=== PATIENT | female | born 1995 | race Caucasian/White ===

== ENCOUNTER → 2016-11-04 | Outpatient (CLI) | payer OTHER ==
[2016-11-04 17:29] LABS: BASO % 0.4 % (0.0-1.0); EOS # 0.1 K/mm3 (0.0-0.50); LARGE UNSTAINED CELL # 0.1 K/mm3 (0.0-0.4); LARGE UNSTAINED CELL % 1.9 % (0.0-4.0); LYMPH # 2.8 K/mm3 (1.5-6.5); LYMPH % 39.6 % (24.0-44.0); MEAN CORPUSCULAR HEMOGLOBIN 28.7 pg (27.0-33.0); MEAN CORPUSCULAR HGB CONC 32.6 g/dl (32.0-36.5); MEAN CORPUSCULAR VOLUME 87.9 fl (80.0-96.0); MONO # 0.5 K/mm3 (0.0-0.8); MONO % 7.5 % (0.0-5.0); NEUTROPHILS # 3.4 K/mm3 (1.8-7.7); NEUTROPHILS % 48.6 % (36.0-66.0); PLATELET COUNT, AUTOMATED 284 k/mm3 (150-450); RED CELL DISTRIBUTION WIDTH 12.6 % (11.5-14.5); WHITE BLOOD COUNT 7.1 K/mm3 (4.0-10.0)
[2016-11-04 18:24] LABS: ALBUMIN 3.8 GM/DL (3.2-5.2); ALBUMIN/GLOBULIN RATIO 1.15 (1.00-1.93); ALKALINE PHOSPHATASE 59 U/L (45-117); ALT/SGPT 27 U/L (12-78); ANION GAP 8 MEQ/L (8-16); AST/SGOT 20 U/L (15-37); BILIRUBIN,TOTAL 0.2 MG/DL (0.2-1.0); BLOOD UREA NITROGEN 14 MG/DL (7-18); CARBON DIOXIDE LEVEL 26 MEQ/L (21-32); CHLORIDE LEVEL 107 MEQ/L (98-107); GLOMERULAR FILTRATION RATE > 60.0 (>60); GLUCOSE, FASTING 82 MG/DL (70-105); POTASSIUM SERUM 4.2 MEQ/L (3.5-5.1); SODIUM LEVEL 141 MEQ/L (136-145); TOTAL PROTEIN 7.1 GM/DL (6.4-8.2)
[2016-11-04 18:35] LABS: ERYTHROCYTE SEDIMENTATION RATE 16 mm/hr (0-20)
== END ==
LOC: M WUC 15:32
PROVIDERS: ATTEND Psychiatry & Neurology Neurology
DX: R51 Headache (principal)

== ENCOUNTER → 2016-12-12 | Outpatient (REF) | payer OTHER | LOC: M LAB REF 09:25 | PROVIDERS: ATTEND Physician Assistant | DX: J01.10 Acute frontal sinusitis, unspecified (principal) ==

== ENCOUNTER → 2017-01-10 | Outpatient (REF) | payer BC | LOC: M SFHCWAGY 08:42 | PROVIDERS: ATTEND Nurse Practitioner Women's Health | DX: Z11.4 Encounter for screening for human immunodeficiency virus [HIV] (principal) | CPT/HCPCS: 36415; 87491; 87591; 87899; G0123 ==

== ENCOUNTER → 2017-02-14 | Outpatient (REF) | payer BC ==
[2017-02-25 00:07] LABS: VANILLYLMANDELIC ACID,URINE 3.4 mg/L (Undefined); VANILLYLMANDELIC ACID,URINE 24 3.4 mg/24 hr (0.0-7.5)
== END ==
LOC: M SFHCPLAZ 09:20
PROVIDERS: ATTEND Nurse Practitioner Adult Health
DX: R03.0 Elevated blood-pressure reading, without diagnosis of hypertension (principal)

== ENCOUNTER → 2017-02-28 | Outpatient (CLI) | payer BC ==
--- NOTE | 2017-03-01 04:26 | REP ---
Clinical: Hypertension. Technique: Green scale evaluation of the kidneys using curved array transducer. Findings: The kidneys are essentially normal in contour size and echogenicity and reniform shape without hydronephrosis, nephrolithiasis, cystic or renal mass lesion. Right kidney measures 10.3 x 5.4 x 6.2 cm . Left kidney measures 12.2 x 7.1 x 6.0 cm . Bladder is incompletely distended and grossly normal by current evaluation. Impression: Normal renal ultrasound. Signed by David Atkinson MD 03/01/2017 04:17 A
== END ==
LOC: M RAD 12:55
PROVIDERS: ATTEND Nurse Practitioner Adult Health
DX: R03.0 Elevated blood-pressure reading, without diagnosis of hypertension (principal)

== ENCOUNTER → 2017-07-28 | Outpatient (REF) | payer BC | LOC: M LAB REF 08:58 | DX: J02.9 Acute pharyngitis, unspecified (principal) | CPT/HCPCS: 87081 ==

== ENCOUNTER → 2017-08-16 | Outpatient (CLI) | payer BC | LOC: M RAD 08:44 | DX: J32.0 Chronic maxillary sinusitis (principal) | CPT/HCPCS: 70486 ==

== ENCOUNTER → 2017-11-24 | Outpatient (CLI) | payer OTHER | LOC: M WUC 15:51 | DX: M54.42 Lumbago with sciatica, left side (principal) ==

== ENCOUNTER → 2018-01-27 | Outpatient (CLI) | payer OTHER ==
[2018-01-27 12:25] LABS: HEMATOCRIT 39.5 % (36.0-47.0); HEMOGLOBIN 13.4 g/dl (12.0-15.5); MEAN CORPUSCULAR HEMOGLOBIN 29.9 pg (27.0-33.0); MEAN CORPUSCULAR HGB CONC 33.9 g/dl (32.0-36.5); MEAN CORPUSCULAR VOLUME 88.2 fl (80.0-96.0); PLATELET COUNT, AUTOMATED 279 10^3/uL (150-450); RED BLOOD COUNT 4.48 10^6/uL (4.00-5.40); RED CELL DISTRIBUTION WIDTH 12.8 % (11.5-14.5); WHITE BLOOD COUNT 7.8 10^3/uL (4.0-10.0)
[2018-01-27 13:11] LABS: ALBUMIN 3.7 GM/DL (3.2-5.2); ALBUMIN/GLOBULIN RATIO 1.06 (1.00-1.93); ALKALINE PHOSPHATASE 76 U/L (45-117); ALT/SGPT 33 U/L (12-78); ANION GAP 8 MEQ/L (8-16); AST/SGOT 20 U/L (7-37); BILIRUBIN,TOTAL 0.3 MG/DL (0.2-1.0); BLOOD UREA NITROGEN 10 MG/DL (7-18); CALCIUM LEVEL 8.8 MG/DL (8.5-10.1); CARBON DIOXIDE LEVEL 27 MEQ/L (21-32); CHLORIDE LEVEL 106 MEQ/L (98-107); CHOLESTEROL LEVEL 184 MG/DL (<200); CHOLESTEROL RISK RATIO 4.088 (<5); CREATININE FOR GFR 0.81 MG/DL (0.55-1.30); GLOMERULAR FILTRATION RATE > 60.0 (>60); GLUCOSE, FASTING 92 MG/DL (70-100); HDL CHOLESTEROL 45 MG/DL (>40); LDL CHOLESTEROL 106.8 MG/DL (<100); NON-HDL-C 139 MG/DL; POTASSIUM SERUM 4.6 MEQ/L (3.5-5.1); SODIUM LEVEL 141 MEQ/L (136-145); TOTAL PROTEIN 7.2 GM/DL (6.4-8.2); TRIGLYCERIDES LEVEL 161 MG/DL (<150)
== END ==
LOC: M WUC 08:50
DX: Z00.00 Encounter for general adult medical examination without abnormal findings (principal)
CPT/HCPCS: 84443

== ENCOUNTER → 2018-02-17 | Outpatient (REF) | payer OTHER ==
[2018-02-17 15:56] LABS: CHLAMYDIA DNA AMPLIFICATION NEGATIVE (NEGATIVE); GC DNA AMPLIFICATION NEGATIVE (NEGATIVE)
== END ==
LOC: M SFHCWAGY 09:03
DX: Z12.4 Encounter for screening for malignant neoplasm of cervix (principal)

== ENCOUNTER → 2018-10-11 | Outpatient (CLI) | payer OTHER ==
--- NOTE | 2018-10-13 12:17 | REP ---
MRA BRAIN WITHOUT CONTRAST: HISTORY: Aneurysm. COMPARISON: 01/03/2017. 3D [id number] MR angiography was performed at the level of the [place]. A small aneurysm is present arising from the cavernous left internal carotid artery. The aneurysm measures 1 mm in size. The aneurysm projects anterior and medial from the cavernous left internal carotid artery. There is no other aneurysm or arteriovenous malformation. There are no atherosclerotic lesions. Major intracranial vessels are patent. The vertebral arteries are equal in size. 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 Electronically Signed by Miguel A Smith MD 10/13/2018 12:26 P
== END ==
LOC: M RAD 17:07
PROVIDERS: ATTEND Nurse Practitioner Adult Health
DX: I67.1 Cerebral aneurysm, nonruptured (principal)

== ENCOUNTER → 2019-01-21 | Outpatient (CLI) | payer OTHER ==
[2019-01-21 18:31] LABS: HEMOGLOBIN A1c 5.5 %
[2019-01-21 18:32] LABS: ALBUMIN 3.7 GM/DL (3.2-5.2); ALT/SGPT 34 U/L (12-78); BILIRUBIN,TOTAL 0.3 MG/DL (0.2-1.0); BLOOD UREA NITROGEN 11 MG/DL (7-18); CALCIUM LEVEL 8.7 MG/DL (8.5-10.1); CARBON DIOXIDE LEVEL 27 MEQ/L (21-32); CHLORIDE LEVEL 108 MEQ/L (98-107); CHOLESTEROL LEVEL 169 MG/DL (<200); CHOLESTEROL RISK RATIO 3.595 (<5); CREATININE FOR GFR 0.79 MG/DL (0.55-1.30); FREE T4 1.06 NG/DL (0.76-1.46); GLOMERULAR FILTRATION RATE > 60.0 (>60); GLUCOSE, FASTING 85 MG/DL (70-100); HDL CHOLESTEROL 47 MG/DL (>40); LDL CHOLESTEROL 95 MG/DL (<100); NON-HDL-C 122 MG/DL; POTASSIUM SERUM 4.4 MEQ/L (3.5-5.1); SODIUM LEVEL 141 MEQ/L (136-145); TRIGLYCERIDES LEVEL 137 MG/DL (<150)
[2019-01-21 18:39] LABS: BASO % 0.6 % (0.0-1.0); EOS # 0.2 10^3/uL (0.0-0.50); EOS % 2.6 % (0.0-3.0); HEMATOCRIT 41.1 % (36.0-47.0); HEMOGLOBIN 13.3 g/dl (12.0-15.5); LYMPH # 2.7 10^3/uL (1.5-6.5); LYMPH % 39.2 % (24.0-44.0); MEAN CORPUSCULAR HEMOGLOBIN 29.6 pg (27.0-33.0); MEAN CORPUSCULAR HGB CONC 32.4 g/dl (32.0-36.5); MEAN CORPUSCULAR VOLUME 91.5 fl (80.0-96.0); MONO # 0.5 10^3/uL (0.0-0.8); MONO % 7.3 % (0.0-5.0); NEUTROPHILS # 3.4 10^3/uL (1.8-7.7); NEUTROPHILS % 50.2 % (36.0-66.0); PLATELET COUNT, AUTOMATED 271 10^3/uL (150-450); RED BLOOD COUNT 4.49 10^6/uL (4.00-5.40); WHITE BLOOD COUNT 6.8 10^3/uL (4.0-10.0)
== END ==
LOC: M WUC 08:36
PROVIDERS: ATTEND Physician Assistant
DX: I10 Essential (primary) hypertension (principal); Z68.39 Body mass index [BMI] 39.0-39.9, adult

== ENCOUNTER → 2019-03-12 | Outpatient (REF) | payer OTHER ==
[2019-03-12 13:36] LABS: CHLAMYDIA DNA AMPLIFICATION NEGATIVE (NEGATIVE); GC DNA AMPLIFICATION NEGATIVE (NEGATIVE)
== END ==
LOC: M SFHCWAGY 11:33
PROVIDERS: ATTEND Nurse Practitioner Women's Health
DX: Z11.3 Encounter for screening for infections with a predominantly sexual mode of transmission (principal)

== ENCOUNTER → 2019-07-24 | Outpatient (CLI) | payer OTHER ==
[2019-07-24 13:39] LABS: ALBUMIN 3.8 GM/DL (3.2-5.2); ALT/SGPT 23 U/L (12-78); BILIRUBIN,TOTAL 0.5 MG/DL (0.2-1.0); BLOOD UREA NITROGEN 10 MG/DL (7-18); CALCIUM LEVEL 9.2 MG/DL (8.5-10.1); CARBON DIOXIDE LEVEL 26 MEQ/L (21-32); CHLORIDE LEVEL 105 MEQ/L (98-107); CREATININE FOR GFR 0.81 MG/DL (0.55-1.30); FREE T4 0.97 NG/DL (0.76-1.46); GLOMERULAR FILTRATION RATE > 60.0 (>60); GLUCOSE, FASTING 84 MG/DL (70-100); POTASSIUM SERUM 4.7 MEQ/L (3.5-5.1); SODIUM LEVEL 139 MEQ/L (136-145); THYROID STIMULATING HORMONE 0.677 uIU/ML (0.358-3.740); TOTAL PROTEIN 7.2 GM/DL (6.4-8.2)
== END ==
LOC: M WUC 09:34
PROVIDERS: ATTEND Family Medicine
DX: I10 Essential (primary) hypertension (principal); E66.9 Obesity, unspecified

== ENCOUNTER → 2019-09-27 | Outpatient (CLI) | payer OTHER ==
--- NOTE | 2019-09-27 10:07 | REP ---
Hepatobiliary scan and gallbladder ejection fraction: History: Right upper quadrant pain Technique: 6.6 mCi of technetium-99m mebrofenin was injected and sequential anterior images are acquired. 65 minutes after the mebrofenin injection, the patient consumed 8 ounces Ensure and an additional 60 minutes of imaging was acquired. Regions of interest are plotted around the gallbladder. Findings: The initial hepatocellular parenchymal uptake phase is normal and homogeneous. Intra- and extra-hepatic bile ducts are labeled by the 10 -minute image. The gallbladder is first labeled on the 20 -minute image. There is normal washout from the liver parenchyma into the gallbladder and small intestine on subsequent images. The gallbladder ejection fraction is 93 %. Values greater than 35 % are considered normal with this technique. Impression: Normal hepatobiliary scan and normal gallbladder ejection fraction. Electronically Signed by Da Magallon MD 09/27/2019 10:00 A
== END ==
LOC: M RAD 07:33
PROVIDERS: ATTEND Family Medicine
DX: R10.11 Right upper quadrant pain (principal)
CPT/HCPCS: 78227; A9537; J2805

== ENCOUNTER → 2019-12-05 | Outpatient (CLI) | payer OTHER ==
[2019-12-05 15:09] LABS: ALBUMIN 3.6 GM/DL (3.2-5.2); ALT/SGPT 30 U/L (12-78); BILIRUBIN,DIRECT < 0.1 MG/DL (0.0-0.2); BILIRUBIN,TOTAL 0.3 MG/DL (0.2-1.0); TOTAL PROTEIN 7.2 GM/DL (6.4-8.2)
[2019-12-06 07:13] LABS: H PYLORI QUALITATIVE IgG NEGATIVE (NEGATIVE)
[2019-12-07 08:06] LABS: IGASUB2 53.2 mg/dL (73.2-301.2); IGASUB3 13.2 mg/dL (13.4-97.9); IgA SERUM (part of Subclasses) 72 mg/dL (87-352); TISSUE TRANSGLUTAMINASE IgA <2 U/mL (0-3)
== END ==
LOC: M WUC 12:38
PROVIDERS: ATTEND Internal Medicine Gastroenterology
DX: R10.11 Right upper quadrant pain (principal)

== ENCOUNTER → 2019-12-18 | Outpatient (CLI) | payer OTHER ==
--- NOTE | 2019-12-19 04:31 | REP ---
Clinical: Right upper quadrant pain. Comparison: 09/10/2019. Technique: Real time lackey scale and color evaluation using curved array transducer. Findings: Liver and pancreas are normal in contour, size, echogenicity without focal hepatic or pancreatic lesions identified. Gallbladder demonstrates 13 mm gallstone with mild wall thickening to 5 mm. No pericholecystic fluid or biliary ductal dilatation is appreciated. Common bile duct measures 3 mm diameter. The right kidney is normal in reniform shape without hydronephrosis and measures 9.8 x 6.1 x 5.4 cm. Visualized abdominal aorta appears normal. No ascites in the visualized right upper quadrant. Impression: Cholelithiasis. No definite sonographic evidence for acute cholecystitis.
== END ==
LOC: M PLAIMG 08:19
PROVIDERS: ATTEND Internal Medicine Gastroenterology
DX: K80.20 Calculus of gallbladder without cholecystitis without obstruction (principal); R10.11 Right upper quadrant pain

== ENCOUNTER → 2020-01-21 | Outpatient (CLI) | payer OTHER ==
[~2020-01-21] MED LIST: CETI-36 PO; HYDR-3715 PO; JOLETAB PO; LABE10TAB PO
== END ==
LOC: M LABSMTC 11:46
PROVIDERS: ATTEND Anesthesiology
DX: Z03.818 Encounter for observation for suspected exposure to other biological agents ruled out (principal); Z11.59 Encounter for screening for other viral diseases
CPT/HCPCS: C9803; U0003

== ENCOUNTER 2020-01-24 06:57 | Day surgery (SDC) | payer OTHER ==
[~2020-01-24] VITALS: Ht 162.6 cm; Wt 97.5 kg
[~2020-01-24 06:57] MED LIST changes: -HYDR-3715 PO
[2020-01-24] MEDS ORDERED: LR 1,000 ML IV ONE (07:00)
[2020-01-24] MEDS ORDERED: BUPIVACAINE HCL 0.25% 30ML VIAL As Ordered ONE (08:04)
[2020-01-24] MEDS ORDERED: SUGAMMADEX SODIUM 500 MG/5 ML VIAL (BRIDION) As Ordered ONE (08:33)
[2020-01-24] MEDS ORDERED: propofoL 200 MG/20 ML VIAL As Ordered ONE (08:33)
[2020-01-24] MEDS ORDERED: METOCLOPRAMIDE INJ 10MG/2ML VIAL (J2765 PER 1) As Ordered ONE (08:33)
[2020-01-24] MEDS ORDERED: ONDANSETRON 4MG/2ML VIAL As Ordered ONE (08:33)
[2020-01-24] MEDS ORDERED: dexameTHASONE 4 MG/ML 1ML VIAL (J1100 PER 1MG) As Ordered ONE (08:33)
[2020-01-24] MEDS ORDERED: LIDOCAINE 2% 100MG/5ML SDV (FOR ANES.) As Ordered ONE (08:33)
[2020-01-24] MEDS ORDERED: KETOROLAC 60MG 2ML VIAL As Ordered ONE (08:33)
[2020-01-24] MEDS ORDERED: ROCURONIUM BROMIDE 50 MG/5 ML VIAL As Ordered ONE (08:33)
[2020-01-24] MEDS ORDERED: MIDAZOLAM INJ 2MG/2ML VIAL (J2250 PER 1MG) As Ordered ONE (08:33)
[2020-01-24] MEDS ORDERED: fentaNYL 250 MCG/5 ML INJECTION (J3010) As Ordered ONE (08:33)
[2020-01-24] MEDS ORDERED: ACETAMINOPHEN 1000MG 100ML IV BTL (OFIRMEV) (J0131 PER 10MG) As Ordered ONE (08:52)
[2020-01-24] MEDS ORDERED: fentaNYL 100 MCG/2 ML INJECTION (J3010) IV PRN (10:30)
[2020-01-24] MEDS ORDERED: ONDANSETRON 4MG/2ML VIAL IV PRN (10:30)
[2020-01-24] MEDS ORDERED: oxyCODONE 5MG TAB PO PRN (10:30)
[2020-01-24] MEDS ORDERED: LR 1,000 ML IV SCH (10:30)
[2020-01-24] MEDS ORDERED: HYDROMORPHONE HCL 0.5 MG/ 0.5 ML SYRINGE (J1170 PER 1) IV PRN (10:30)
[2020-01-24] MEDS ORDERED: NORCO, ANEXSIA 5/325MG TABLET (HYDROcodone/ACETAMINOPHEN) PO PRN (10:45)
[2020-01-24] MEDS ORDERED: IBUPROFEN 600MG TAB PO PRN (10:45)
[2020-01-24] MEDS ORDERED: ACETAMINOPHEN TAB 650MG DOSE (2X325MG) PO PRN (10:45)
[2020-01-24] MEDS ORDERED: HYDR-3715 PO (10:55)
[2020-01-24 12:25] VITALS: BP 136/79
--- NOTE | 2020-01-29 14:30 | RO ---
DATE OF PROCEDURE: 01/24/2020 PREOPERATIVE DIAGNOSIS: Symptomatic cholelithiasis. POSTOPERATIVE DIAGNOSIS: Symptomatic cholelithiasis. PROCEDURE PERFORMED: Robotic-assisted laparoscopic cholecystectomy. SURGEON: Dr. Jordy Campos LANDSCAPE MANAGER: ANESTHESIA: General. INDICATIONS FOR PROCEDURE: The patient is a 24-year-old woman who has had a history of episodic upper abdominal pains. She was found to have cholelithiasis and is now for a laparoscopic cholecystectomy. OPERATIVE PROCEDURE: The patient was brought to the operating room and placed on the table in a supine position. She was placed under general endotracheal anesthesia. The patient's abdomen was prepped and draped in a sterile fashion. 0.25% Marcaine was infiltrated at each of the trocar sites as needed. Initial incision was in the left upper quadrant. A Veress needle was inserted and after a positive hanging drop test the abdomen was inflated with carbon dioxide gas. An 8 mm robotic port was then placed over a 5 mm scope and advanced through the abdominal wall without difficulty. The laparoscope was inserted and initial examination showed no adhesions. The liver appeared normal. Visualized portions of the stomach and small and large bowel appeared normal. The tip of the fundus of the gallbladder was seen and did not appear acutely inflamed. Three additional 8 mm ports were then placed at the supraumbilical site and with two in the right lower quadrant. The surgical table was then tilted to a 10 degrees head-up position and rolled 5 degrees to the left. The da [employer] Xi surgical robot patient cart was brought into position and the camera arm was docked to the port at the supraumbilical site. The camera was inserted and targeting took place on the gallbladder. The additional robotic arms were then docked as well. A hook cautery was placed in the left upper quadrant and a Force bipolar and grasping retractor were placed in the right lower quadrant trocar sites. I then moved to the control console to proceed with the operation. The gallbladder was found to have some adhesions of the omentum beginning at the fundus and trailing along the free edge and these were divided with the cautery. Dissection was then begun at the gallbladder neck. The cystic duct and cholecystic artery were both clearly identified and dissected free. Both structures were then doubly clipped with Hem-o-miky clips and divided. Dissection of the gallbladder from the gallbladder bed was then begun. A second cholecystic artery was identified in the bed of the gallbladder and this was also clipped and divided. The dissection of the gallbladder continued until the gallbladder was completely freed. The gallbladder was not perforated in the course of dissection. The instruments were then rearranged and the supraumbilical site was used for passage of a specimen retrieval pouch. The gallbladder was inserted. Final inspection of the gallbladder bed showed no evidence of bleeding or bile leak. The robotic instruments were all removed. I returned to the operating table. The abdomen was deflated and the robotic ports were removed. Removal of gallbladder at the supraumbilical site necessitated extending the fascial incision slightly. There was one stone approximately 1.5 cm in diameter palpable within the gallbladder. The fascia was closed with interrupted simple sutures of #2-0 Vicryl. The skin incisions were all closed with buried #4-0 Vicryl and Steri-Strips. The patient tolerated the procedure well without apparent complication. She was awakened in the operating room, extubated and moved to the recovery room in stable condition.
== END 2020-01-24 12:50 | disposition home or self-care (01) ==
LOC: M SDC 06:57
PROVIDERS: ATTEND Surgery
DX: K80.20 Calculus of gallbladder without cholecystitis without obstruction (principal); I10 Essential (primary) hypertension; Z79.899 Other long term (current) drug therapy
CPT/HCPCS: 47562; 81025; 88304; J0131; J1100; J1885; J2250; J2405; J2765; J3010

== ENCOUNTER → 2020-03-13 | Outpatient (REF) | payer OTHER ==
[~2020-03-13] MED LIST changes: +HYDR-3715 PO
== END ==
LOC: M SFHCWAGY 12:26
PROVIDERS: ATTEND Nurse Practitioner Women's Health
DX: Z12.4 Encounter for screening for malignant neoplasm of cervix (principal)

== ENCOUNTER → 2020-08-09 | Outpatient (CLI) | payer OTHER ==
[~2020-08-09] MED LIST changes: +LABE100T4 PO; -LABE10TAB PO
[2020-08-09 11:12] LABS: BASO % 0.6 % (0.0-1.0); EOS # 0.1 10^3/uL (0.0-0.5); EOS % 1.7 % (0.0-3.0); HEMOGLOBIN 13.2 g/dl (12.0-15.5); LYMPH # 2.4 10^3/uL (1.5-5.0); LYMPH % 38.4 % (24.0-44.0); MEAN CORPUSCULAR HEMOGLOBIN 28.9 pg (27.0-33.0); MEAN CORPUSCULAR HGB CONC 32.2 g/dl (32.0-36.5); MEAN CORPUSCULAR VOLUME 89.9 fl (80.0-96.0); MONO # 0.5 10^3/uL (0.0-0.8); NEUTROPHILS # 3.3 10^3/uL (1.5-8.5); NEUTROPHILS % 51.1 % (36.0-66.0); PLATELET COUNT, AUTOMATED 274 10^3/uL (150-450); RED BLOOD COUNT 4.56 10^6/uL (4.00-5.40); WHITE BLOOD COUNT 6.4 10^3/uL (4.0-10.0)
[2020-08-09 11:53] LABS: ALBUMIN 4.2 GM/DL (3.2-5.2); ALT/SGPT 35 U/L (12-78); BILIRUBIN,TOTAL 0.3 MG/DL (0.2-1.0); BLOOD UREA NITROGEN 12 MG/DL (7-18); CALCIUM LEVEL 8.8 MG/DL (8.5-10.1); CARBON DIOXIDE LEVEL 25 MEQ/L (21-32); CHLORIDE LEVEL 107 MEQ/L (98-107); CREATININE FOR GFR 0.87 MG/DL (0.55-1.30); FERRITIN 43 NG/ML (8-252); FREE T4 0.99 NG/DL (0.76-1.46); GLOMERULAR FILTRATION RATE > 60.0 (>60); GLUCOSE, FASTING 91 MG/DL (70-100); IRON (FE) 115 UG/DL (50-170); PERCENT SATURATION 25.8 % (13.2-45.0); POTASSIUM SERUM 4.5 MEQ/L (3.5-5.1); SODIUM LEVEL 138 MEQ/L (136-145); TOTAL IRON BINDING CAPACITY 446 UG/DL (250-450); TOTAL PROTEIN 7.5 GM/DL (6.4-8.2)
[2020-08-11 13:23] LABS: TOTAL 25(OH) VITAMIN D 44.8 NG/ML (30.0-100.0)
[2020-08-11 13:24] LABS: VITAMIN B12 LEVEL 341 PG/ML
[2020-08-11 13:25] LABS: FOLATE > 24.0 NG/ML
== END ==
LOC: M LAB 10:44
PROVIDERS: ATTEND Physician Assistant
DX: D50.9 Iron deficiency anemia, unspecified (principal)

== ENCOUNTER → 2021-03-19 | Outpatient (CLI) | payer OTHER ==
--- NOTE | 2021-03-19 16:24 | REP ---
INDICATION: Palpable right breast mass at 9 o'clock COMPARISON: None TECHNIQUE: Real-time sonographic evaluation right breast at the 9 o'clock position over a palpable abnormality FINDINGS: There are no cystic or solid masses. IMPRESSION: ACR category 2 benign right breast ultrasound as described above. <Electronically signed by Davion Rowan > 03/19/21 [id number]
== END ==
LOC: M WHC 14:42
PROVIDERS: ATTEND Nurse Practitioner Women's Health
DX: N63.10 Unspecified lump in the right breast, unspecified quadrant (principal)

== ENCOUNTER → 2021-06-21 | Outpatient (CLI) | payer OTHER ==
[2021-06-21 09:53] LABS: BASO % 0.7 % (0.0-1.0); EOS # 0.1 10^3/uL (0.0-0.5); EOS % 1.6 % (0.0-3.0); HEMATOCRIT 39.3 % (36.0-47.0); HEMOGLOBIN 12.4 g/dl (12.0-15.5); LYMPH # 2.2 10^3/uL (1.5-5.0); LYMPH % 36.3 % (24.0-44.0); MEAN CORPUSCULAR HGB CONC 31.6 g/dl (32.0-36.5); MEAN CORPUSCULAR VOLUME 85.6 fl (80.0-96.0); MONO # 0.4 10^3/uL (0.0-0.8); MONO % 7.2 % (2.0-8.0); NEUTROPHILS # 3.3 10^3/uL (1.5-8.5); NEUTROPHILS % 53.7 % (36.0-66.0); PLATELET COUNT, AUTOMATED 297 10^3/uL (150-450); RED BLOOD COUNT 4.59 10^6/uL (4.00-5.40); WHITE BLOOD COUNT 6.1 10^3/uL (4.0-10.0)
[2021-06-21 10:18] LABS: HEMOGLOBIN A1c 5.5 %
[2021-06-21 10:45] LABS: ALBUMIN 3.5 GM/DL (3.2-5.2); ALT/SGPT 33 U/L (12-78); BILIRUBIN,TOTAL 0.2 MG/DL (0.2-1.0); BLOOD UREA NITROGEN 13 MG/DL (7-18); CARBON DIOXIDE LEVEL 23 MEQ/L (21-32); CHLORIDE LEVEL 112 MEQ/L (98-107); CREATININE FOR GFR 0.79 MG/DL (0.55-1.30); FREE T4 0.96 NG/DL (0.76-1.46); GLOMERULAR FILTRATION RATE > 60.0 (>60); GLUCOSE, FASTING 93 MG/DL (70-100); POTASSIUM SERUM 4.7 MEQ/L (3.5-5.1); SODIUM LEVEL 141 MEQ/L (136-145); THYROID STIMULATING HORMONE 0.685 uIU/ML (0.358-3.740); TOTAL PROTEIN 7.2 GM/DL (6.4-8.2)
== END ==
LOC: M LAB 09:37
PROVIDERS: ATTEND Physician Assistant
DX: I10 Essential (primary) hypertension (principal)

== ENCOUNTER → 2021-07-14 | Outpatient (CLI) | payer OTHER | LOC: M RAD 15:06 | PROVIDERS: ATTEND Physician Assistant | DX: G25.0 Essential tremor (principal) ==

== ENCOUNTER → 2021-07-14 | Outpatient (CLI) | payer OTHER ==
--- NOTE | 2021-07-16 14:47 | SLEEPHOME ---
DATE: 07/14/2021 ORDERED BY: Dr. King Diagnostic home sleep testing was performed due to concern for the obstructive sleep apnea syndrome in this patient with a history of hypersomnia and snoring. For testing, a NOX T3 respiratory monitoring device was used. Continuous record was made of pulse, oxygen saturation, air flow, chest and abdominal strain, and body position. There was 9 hours and 59 minutes of data reviewed. There was 7 hours and 51 minutes marked as time in bed. During the interval marked time in bed, there were 42 respiratory events identified of 10 seconds in duration or greater for a respiratory event index of 5.3. The events were primarily obstructive. Baseline pulse rate 72. Pulse rate ranged 58-103. Baseline saturation was 96%. Saturation did dip to 90%, and testing was performed in both the supine and nonsupine positions. IMPRESSION: Abnormal home sleep testing with repetitive respiratory events and oxygen desaturations just to 90% with a respiratory event index of 5.3 is suggestive of mild obstructive sleep apnea syndrome. RECOMMENDATION: Sleep position retraining for avoidance of the supine posture may be sufficient. Should the patient have persistent symptoms, referral for formal sleep evaluation could be considered.
== END ==
LOC: M SLEEP HO 15:08
PROVIDERS: ATTEND Family Medicine
DX: R06.83 Snoring (principal)

== ENCOUNTER → 2022-01-08 | Outpatient (CLI) | payer OTHER ==
[2022-01-08 17:04] LABS: BASO # 0.1 10^3/uL (0.0-0.2); BASO % 0.9 % (0.0-1.0); EOS # 0.1 10^3/uL (0.0-0.5); EOS % 1.9 % (0.0-3.0); HEMATOCRIT 37.9 % (36.0-47.0); LYMPH # 1.9 10^3/uL (1.5-5.0); LYMPH % 32.6 % (24.0-44.0); MEAN CORPUSCULAR HEMOGLOBIN 27.3 pg (27.0-33.0); MEAN CORPUSCULAR HGB CONC 31.7 g/dl (32.0-36.5); MEAN CORPUSCULAR VOLUME 86.3 fl (80.0-96.0); MONO # 0.6 10^3/uL (0.0-0.8); MONO % 11.2 % (2.0-8.0); PLATELET COUNT, AUTOMATED 273 10^3/uL (150-450); RED BLOOD COUNT 4.39 10^6/uL (4.00-5.40); WHITE BLOOD COUNT 5.7 10^3/uL (4.0-10.0)
[2022-01-08 17:41] LABS: ALT/SGPT 37 U/L (12-78); BILIRUBIN,DIRECT < 0.1 MG/DL (0.0-0.2); BILIRUBIN,TOTAL 0.4 MG/DL (0.2-1.0); BLOOD UREA NITROGEN 13 MG/DL (7-18); CALCIUM LEVEL 9.7 MG/DL (8.5-10.1); CARBON DIOXIDE LEVEL 25 MEQ/L (21-32); CHLORIDE LEVEL 109 MEQ/L (98-107); CREATININE FOR GFR 0.97 MG/DL (0.55-1.30); FOLATE 9.6 NG/ML; FREE T4 0.78 NG/DL (0.76-1.46); GLOMERULAR FILTRATION RATE > 60.0 (>60); GLUCOSE, FASTING 73 MG/DL (70-100); POTASSIUM SERUM 4.3 MEQ/L (3.5-5.1); SODIUM LEVEL 141 MEQ/L (136-145); THYROID STIMULATING HORMONE 0.436 uIU/ML (0.358-3.740); TOTAL 25(OH) VITAMIN D 37.2 NG/ML (30.0-100.0); TOTAL PROTEIN 7.1 GM/DL (6.4-8.2); VITAMIN B12 LEVEL 248 PG/ML
== END ==
LOC: M PLALAB 13:56
PROVIDERS: ATTEND Physician Assistant
DX: R42 Dizziness and giddiness (principal)

== ENCOUNTER → 2022-02-19 | Outpatient (CLI) | payer OTHER ==
[2022-02-19 18:29] LABS: BASO % 0.6 % (0.0-1.0); EOS # 0.1 10^3/uL (0.0-0.5); EOS % 1.9 % (0.0-3.0); HEMOGLOBIN 12.5 g/dl (12.0-15.5); LYMPH # 2.3 10^3/uL (1.5-5.0); LYMPH % 34.2 % (24.0-44.0); MEAN CORPUSCULAR HEMOGLOBIN 28.2 pg (27.0-33.0); MEAN CORPUSCULAR HGB CONC 32.1 g/dl (32.0-36.5); MEAN CORPUSCULAR VOLUME 87.8 fl (80.0-96.0); MONO # 0.6 10^3/uL (0.0-0.8); MONO % 8.2 % (2.0-8.0); NEUTROPHILS # 3.7 10^3/uL (1.5-8.5); NEUTROPHILS % 54.8 % (36.0-66.0); PLATELET COUNT, AUTOMATED 277 10^3/uL (150-450); RED BLOOD COUNT 4.44 10^6/uL (4.00-5.40); WHITE BLOOD COUNT 6.7 10^3/uL (4.0-10.0)
[2022-02-19 20:00] LABS: ALBUMIN 4.1 GM/DL (3.2-5.2); ALT/SGPT 23 U/L (12-78); BILIRUBIN,TOTAL 0.3 MG/DL (0.2-1.0); BLOOD UREA NITROGEN 10 MG/DL (7-18); CALCIUM LEVEL 9.4 MG/DL (8.5-10.1); CARBON DIOXIDE LEVEL 27 MEQ/L (21-32); CHLORIDE LEVEL 110 MEQ/L (98-107); CREATININE FOR GFR 0.86 MG/DL (0.55-1.30); GLOMERULAR FILTRATION RATE > 60.0 (>60); GLUCOSE, FASTING 89 MG/DL (70-100); POTASSIUM SERUM 4.4 MEQ/L (3.5-5.1); SODIUM LEVEL 143 MEQ/L (136-145)
[2022-02-19 20:05] LABS: TOTAL 25(OH) VITAMIN D 48.6 NG/ML (30.0-100.0); VITAMIN B12 LEVEL 378 PG/ML
[2022-02-19 20:06] LABS: FOLATE 12.9 NG/ML
== END ==
LOC: M PLALAB 13:37
PROVIDERS: ATTEND Physician Assistant
DX: D51.9 Vitamin B12 deficiency anemia, unspecified (principal)

== ENCOUNTER → 2022-03-12 | Outpatient (CLI) | payer OTHER ==
[~2022-03-12] MED LIST changes: -LABE100T4 PO; +LABE100T6 PO
[2022-03-12 10:53] LABS: BASO % 0.5 % (0.0-1.0); EOS # 0.2 10^3/uL (0.0-0.5); EOS % 2.7 % (0.0-3.0); HEMATOCRIT 39.9 % (36.0-47.0); LYMPH % 33.3 % (24.0-44.0); MEAN CORPUSCULAR HEMOGLOBIN 28.8 pg (27.0-33.0); MEAN CORPUSCULAR HGB CONC 32.6 g/dl (32.0-36.5); MEAN CORPUSCULAR VOLUME 88.3 fl (80.0-96.0); MONO # 0.5 10^3/uL (0.0-0.8); MONO % 8.6 % (2.0-8.0); NEUTROPHILS # 3.3 10^3/uL (1.5-8.5); NEUTROPHILS % 54.7 % (36.0-66.0); PLATELET COUNT, AUTOMATED 243 10^3/uL (150-450); RED BLOOD COUNT 4.52 10^6/uL (4.00-5.40); WHITE BLOOD COUNT 5.9 10^3/uL (4.0-10.0)
[2022-03-12 12:22] LABS: HEPATITIS B CORE ANTIBODY IGM NEGATIVE (NEGATIVE); HEPATITIS B SURFACE ANTIGEN NEGATIVE (NEGATIVE); HIV 1&2 SCREEN CENTAUR NEGATIVE (NEGATIVE)
[2022-03-12 12:31] LABS: GC DNA AMPLIFICATION NEGATIVE (NEGATIVE)
== END ==
LOC: M PLALAB 07:25
PROVIDERS: ATTEND Physician Assistant
DX: Z11.3 Encounter for screening for infections with a predominantly sexual mode of transmission (principal)

== ENCOUNTER → 2022-07-30 | Outpatient (REF) | payer OTHER | LOC: M PLALAB 12:10 | PROVIDERS: ATTEND Nurse Practitioner Family | DX: Z12.4 Encounter for screening for malignant neoplasm of cervix (principal) | CPT/HCPCS: 87624; G0123 ==

== ENCOUNTER → 2022-12-17 | Outpatient (REF) | payer OTHER ==
[2022-12-17 19:43] LABS: GC DNA AMPLIFICATION NEGATIVE (NEGATIVE)
== END ==
LOC: M SFHCWAGY 17:07
PROVIDERS: ATTEND Nurse Practitioner Family
DX: Z11.3 Encounter for screening for infections with a predominantly sexual mode of transmission (principal)

== ENCOUNTER → 2023-06-13 | Outpatient (CLI) | payer OTHER | LOC: M PLAIMG 11:55 | PROVIDERS: ATTEND Physician Assistant | DX: M46.1 Sacroiliitis, not elsewhere classified (principal); M41.35 Thoracogenic scoliosis, thoracolumbar region ==

== ENCOUNTER → 2023-08-29 | Outpatient (REF) | payer OTHER | LOC: M SFHCWAGY 10:14 | PROVIDERS: ATTEND Nurse Practitioner Family | DX: N39.0 Urinary tract infection, site not specified (principal); Z12.4 Encounter for screening for malignant neoplasm of cervix | CPT/HCPCS: 87086; 87624; G0123 ==

== ENCOUNTER → 2024-01-13 | Outpatient (CLI) | payer OTHER | LOC: M RAD 15:32 | PROVIDERS: ATTEND Family Medicine | DX: I67.1 Cerebral aneurysm, nonruptured (principal) ==

== ENCOUNTER → 2024-02-01 | Outpatient (REF) | payer OTHER ==
[2024-02-07 13:41] LABS: HPV APTIMA Detected (Not Detected)
== END ==
LOC: M SFHCWAGY 12:28
PROVIDERS: ATTEND Nurse Practitioner Family
DX: Z12.4 Encounter for screening for malignant neoplasm of cervix (principal)
CPT/HCPCS: 87624; G0123

== ENCOUNTER → 2024-10-25 | Outpatient (REF) | payer OTHER | LOC: M LAB REF 20:07 | PROVIDERS: ATTEND Student in an Organized Health Care Education/Training Program | DX: R30.0 Dysuria (principal) ==

== ENCOUNTER → 2025-02-04 | Outpatient (CLI) | payer OTHER | LOC: M CARPUL 08:38 | PROVIDERS: ATTEND Physician Assistant | DX: R01.1 Cardiac murmur, unspecified (principal) ==

== ENCOUNTER → 2025-03-18 | Outpatient (CLI) | payer OTHER ==
[2025-03-18 18:14] LABS: FREE T4 1.02 NG/DL (0.89-1.76); LUTEINIZING HORMONE 17.4 mIU/ML; PROLACTIN 14.34 NG/ML
[2025-03-18 18:15] LABS: PROGESTERONE 0.21 NG/ML
== END ==
LOC: M PLALAB 15:38
PROVIDERS: ATTEND Specialist
DX: N92.6 Irregular menstruation, unspecified (principal)

== ENCOUNTER → 2025-03-18 | Outpatient (REF) | payer OTHER | LOC: M PLALAB 15:29 | PROVIDERS: ATTEND Specialist | DX: R87.612 Low grade squamous intraepithelial lesion on cytologic smear of cervix (LGSIL) (principal) ==

== ENCOUNTER → 2025-04-15 | Outpatient (CLI) | payer OTHER ==
[2025-04-15 16:51] LABS: HCG, SERUM QUALITATIVE POSITIVE (NEGATIVE)
[2025-04-15 22:35] LABS: HCG, SERUM QUANTITATIVE 13.1 MIU/ML (<4.2)
== END ==
LOC: M PLALAB 13:26
PROVIDERS: ATTEND Advanced Practice Midwife
DX: O20.9 Hemorrhage in early pregnancy, unspecified (principal); Z3A.00 Weeks of gestation of pregnancy not specified

== ENCOUNTER → 2025-04-18 | Outpatient (CLI) | payer OTHER | LOC: M WUC 08:11 | PROVIDERS: ATTEND Specialist | DX: N92.6 Irregular menstruation, unspecified (principal) ==

== ENCOUNTER → 2025-05-16 | Outpatient (CLI) | payer OTHER | LOC: M RAD 06:55 | PROVIDERS: ATTEND Physician Assistant Surgical | DX: S86.111A Strain of other muscle(s) and tendon(s) of posterior muscle group at lower leg level, right leg, initial encounter (principal); W18.30XA Fall on same level, unspecified, initial encounter; Y92.009 Unspecified place in unspecified non-institutional (private) residence as the place of occurrence of the external cause ==

== ENCOUNTER → 2025-05-29 | Outpatient (REF) | payer OTHER | LOC: M PLALAB 15:38 | PROVIDERS: ATTEND Specialist | DX: Z53.9 Procedure and treatment not carried out, unspecified reason (principal) ==

== ENCOUNTER → 2025-05-29 | Outpatient (CLI) | payer OTHER | LOC: M LAB 16:44 | PROVIDERS: ATTEND Family Medicine | DX: Z34.01 Encounter for supervision of normal first pregnancy, first trimester (principal); Z3A.01 Less than 8 weeks gestation of pregnancy ==

== ENCOUNTER → 2025-05-31 | Outpatient (CLI) | payer OTHER | LOC: M LAB 12:47 | PROVIDERS: ATTEND Specialist | DX: Z36.89 Encounter for other specified antenatal screening (principal); Z3A.01 Less than 8 weeks gestation of pregnancy ==

== ENCOUNTER → 2025-06-05 | Outpatient (CLI) | payer OTHER ==
[2025-06-05 10:33] LABS: BASO # 0.0 10^3/uL (0.0-0.2); BASO % 0.4 % (0.0-1.0); EOS # 0.2 10^3/uL (0.0-0.5); EOS % 2.5 % (0.0-3.0); LYMPH # 2.1 10^3/uL (1.5-5.0); LYMPH % 31.0 % (24.0-44.0); MONO # 0.4 10^3/uL (0.0-0.8); MONO % 5.8 % (2.0-8.0); NEUTROPHILS # 4.1 10^3/uL (1.5-8.5); NEUTROPHILS % 60.0 % (36.0-66.0); PLATELET COUNT, AUTOMATED 256 10^3/uL (150-450)
[2025-06-05 11:01] LABS: ALT/SGPT 52 U/L (7.0-40); AST/SGOT 31 U/L (<34); CALCIUM LEVEL 8.6 MG/DL (8.5-10.1); CARBON DIOXIDE LEVEL 27 MMOL/L (20-31); CHLORIDE LEVEL 104 MMOL/L (98-107); CREATININE FOR GFR 0.72 MG/DL (0.55-1.30); GLOMERULAR FILTRATION RATE > 90.0 (>60); POTASSIUM SERUM 4.3 MMOL/L (3.5-5.1); SODIUM LEVEL 138 MMOL/L (136-145)
[2025-06-05 11:02] LABS: TOTAL 25(OH) VITAMIN D 40.0 NG/ML (20.0-100.0)
[2025-06-05 11:03] LABS: FREE T4 1.12 NG/DL (0.89-1.76); VITAMIN B12 LEVEL 319 PG/ML (211-911)
[2025-06-05 11:12] LABS: HCG, SERUM QUANTITATIVE 1313.5 MIU/ML (<4.2)
== END ==
LOC: M PLALAB 08:57
PROVIDERS: ATTEND Physician Assistant
DX: N93.8 Other specified abnormal uterine and vaginal bleeding (principal); D51.9 Vitamin B12 deficiency anemia, unspecified; E55.9 Vitamin D deficiency, unspecified

== ENCOUNTER → 2025-06-12 | Outpatient (CLI) | payer OTHER | LOC: M PLALAB 11:32 | PROVIDERS: ATTEND Specialist | DX: N92.6 Irregular menstruation, unspecified (principal) ==

== ENCOUNTER → 2025-07-02 | Outpatient (CLI) | payer OTHER ==
[~2025-07-02] MED LIST changes: -LABE100T6 PO; +LABE100T91 PO
== END ==
LOC: M PLALAB 11:16
PROVIDERS: ATTEND Specialist
DX: Z34.01 Encounter for supervision of normal first pregnancy, first trimester (principal)

== ENCOUNTER 2025-07-04 06:32 | Day surgery (SDC) | payer OTHER ==
[~2025-07-04] VITALS: Ht 162.6 cm; Wt 105.7 kg
[2025-07-04] MEDS ORDERED: ONDANSETRON 4MG/2ML VIAL As Ordered ONE (07:22)
[2025-07-04] MEDS ORDERED: ACETAMINOPHEN 1000MG/100ML IV BAG As Ordered ONE (07:22)
[2025-07-04] MEDS ORDERED: dexAMETHasone 4 MG/ML 1 ML VIAL As Ordered ONE (07:22)
[2025-07-04] MEDS ORDERED: LIDOCAINE 2% 100 MG/5 ML SDV (FOR ANES.) As Ordered ONE (07:22)
[2025-07-04] MEDS ORDERED: MIDAZOLAM INJ 2 MG/2 ML VIAL As Ordered ONE (07:23)
[2025-07-04] MEDS ORDERED: SUGAMMADEX SODIUM 500 MG/5 ML VIAL As Ordered ONE (07:49)
[2025-07-04] MEDS ORDERED: ROCURONIUM BROMIDE 50MG/5ML VIAL As Ordered ONE (07:49)
[2025-07-04] MEDS ORDERED: DOXYCYCLINE HYCLATE 100 MG/10 ML VIAL As Ordered ONE (08:19)
[2025-07-04] MEDS: DOXYCYCLINE HYCLATE 100 MG in DEXTROSE 5% (D5W) MINI-BAG PLU 100 ML IV ONE (08:35)
[2025-07-04] MEDS: SILVER NITRATE APPLICATOR (1 = QTY 10) As Ordered ONE (08:47)
[2025-07-04] MEDS: LIDOCAINE 1% SDV 30 ML VIAL As Ordered ONE (08:58)
[2025-07-04 09:11] LABS: PLATELET COUNT, AUTOMATED 248 10^3/uL (150-450)
[2025-07-04] MEDS ORDERED: HYDROMORPHONE HCL 0.5 MG/0.5 ML SYRINGE IV PRN ×2 (09:15→09:20)
[2025-07-04] MEDS ORDERED: ONDANSETRON 4MG/2ML VIAL IV PRN ×2 (09:15→10:00)
[2025-07-04] MEDS ORDERED: LR 1,000 ML IV SCH ×2 (09:15→09:20)
[2025-07-04] MEDS ORDERED: MORPHINE 2 MG/ML 1 ML VIAL IV PRN (09:20)
[2025-07-04] MEDS: KETOROLAC 30 MG/ML 1 ML VIAL IV ONE (09:58)
[2025-07-04] MEDS: SCOPOLAMINE 1MG TRANSDERMAL PATCH TOP ONE (10:00)
[2025-07-04] MEDS ORDERED: NS (Normal Saline) 0.9% 1,000 ML IV SCH (10:00)
[2025-07-04 10:11] VITALS: BP 136/81; TEMP 98.8; O2SAT 99
== END 2025-07-04 10:42 | disposition home or self-care (01) ==
LOC: M SDC 06:32
PROVIDERS: ATTEND Obstetrics & Gynecology
DX: O02.1 Missed abortion (principal); I10 Essential (primary) hypertension; E66.9 Obesity, unspecified; Z68.39 Body mass index [BMI] 39.0-39.9, adult; Z79.899 Other long term (current) drug therapy; Z88.0 Allergy status to penicillin
CPT/HCPCS: 59820; 85027; 86900; 86901; 88305; J0131; J1100; J1271; J1885; J2250; J2405; J3010